=== PATIENT | female | born 1985 | race Caucasian/White ===

== ENCOUNTER 2019-05-26 14:41 | Outpatient (REF) | payer MEDICAID, SELFPAY ==
--- NOTE | 2019-05-26 13:15 | PAPFT_PTH ---
PATIENT: Raven Barahona LOC: NCN #:[id number] AGE/SX: 34/F ROOM: RE05/26/[address]: Chantale Cummings : 1985 BED: DIS: 05/26/2019 SPEC #: [id number] RECD: 05/27/19 12:52 STATUS: GILDA REQ #: [id number] ASHLEY: 05/26/19 13:[address]: Chantale Cummings DEPT: [facility] Cytology RECD BY: Olga Garces Tissues: 1 - CX/ENDOCX FOR PAP SMEARS Procedures: PAP THIN PREP/UVM Screening HPV DNA PROBE Comments: [id number]
[2019-05-28 13:05] LABS: HIV-1/2 Ag & Ab Screen Negative (Negative); Hepatitis C Ab w Rflx HCV PCR Negative (Negative)
[2019-05-28 13:10] LABS: Chlamydia Result Negative (Negative); GC Result Negative (Negative)
== END 2019-05-26 15:01 ==
LOC: NCHCN 14:41
PROVIDERS: PCP Physician Assistant Medical; Visit Provider Physician Assistant Medical
DX: Z11.3 Encounter for screening for infections with a predominantly sexual mode of transmission (principal); Z11.4 Encounter for screening for human immunodeficiency virus [HIV]; Z11.59 Encounter for screening for other viral diseases; Z12.4 Encounter for screening for malignant neoplasm of cervix; Z00.00 Encounter for general adult medical examination without abnormal findings
CPT/HCPCS: 86803; 87389; 87491; 87591; 88142; 87624

== ENCOUNTER 2020-09-08 18:29 | Outpatient (REF) | payer MEDICAID, SELFPAY ==
[2020-09-10 14:39] LABS: Chlamydia Result Negative (Negative); GC Result Negative (Negative)
== END 2020-09-08 18:30 | disposition home or self-care (01) ==
LOC: NCHCN 18:29
PROVIDERS: PCP Physician Assistant Medical; Visit Provider Physician Assistant Medical
DX: R10.9 Unspecified abdominal pain (principal); Z11.3 Encounter for screening for infections with a predominantly sexual mode of transmission; N76.89 Other specified inflammation of vagina and vulva
CPT/HCPCS: 87491; 87591; 87480; 87510; 87660

== ENCOUNTER 2020-11-01 01:02 | Outpatient (CLI) | payer MEDICAID, SELFPAY ==
--- NOTE | 2020-11-01 | DI.US_ITS ---
Exam(s) US PELVIS EXAM: US PELVIS CLINICAL HISTORY: PELVIC PAIN, R10.2. TECHNIQUE: Transabdominal pelvic ultrasound was performed using standard protocol. The patient decl ined the transvaginal portion of the examination. COMPARISON: US RENAL ULTRASOUND(P) from 05/15/2013 FINDINGS: KIDNEYS: Kidneys are symmetric in size. No evidence of renal calculi. No evidence of hydronephrosis. No renal mass or cyst identified. UTERUS: Position: Anteverted. Size: 6.9 long by 4.4 AP by 6.2 transverse cm Endometrium: 0.8 cm. Normal for patient's menstrual status. Myometrium: Unremarkable. Cervix: Unremarkable. OVARIES: Right: 3.5 x 1.6 x 1.1 cm Cyst or mass: None. Left: 2.9 x 2.3 x 2.6 cm Cyst or mass: None. DOPPLER: Color: Symmetric and uniform flow to both ovaries. No hyperemia. Duplex: Normal ovarian arterial waveforms visualized. CUL-DE-SAC: Free fluid: None. Other: None. IMPRESSION: 1. Normal sonographic appearance of the kidneys. 2. Normal-appearing uterus with endometrial stripe within normal limits. 3. Unremarkable bilateral ovaries. DATA REPOSITORY:
== END 2020-11-01 01:22 ==
PROVIDERS: PCP Physician Assistant Medical; Visit Provider Physician Assistant Medical
DX: R10.2 Pelvic and perineal pain (principal)
CPT/HCPCS: 76856

== ENCOUNTER 2022-02-21 07:50 | Emergency (ER) | payer MEDICAID, SELFPAY ==
[2022-02-21 07:54] VITALS: BP 112/47; PULSE 62; RESP 18; TEMP 36.6; O2SAT 99
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
[2022-02-21 08:34] LABS: Bilirubin Negative (Negative); Blood Negative (Negative); Clarity Clear (Clear); Glucose Negative (Negative); Ketones Negative (Negative); Leukocyte Esterase Negative (Negative); Nitrite Negative (Negative); Specific Gravity 1.025 (1.005-1.025); Urobilinogen 0.2 EU/dL (Up TO 0.2)
[2022-02-21 09:08] LABS: Abs Immature Grans 0.02 10^3/uL (0.0-0.06); Absolute Basophil Count 0.05 10^3/uL (0.0-0.2); Absolute Eosinophil Count 0.03 10^3/uL (0.0-0.7); Absolute Lymphocyte Count 1.48 10^3/uL (1.2-3.4); Absolute Monocyte Count 0.41 10^3/uL (0.1-0.8); Basophils % 0.7; Eosinophils % 0.4; HCT 38.5 % (36.0-46.0); HGB 13.1 g/dL (11.2-15.7); Immature Grans % 0.3; Lymphocytes % 22.1; MCH 30.2 pg (27.0-33.0); MCV 89 fL (80-95); MPV 10.1 fL (8.0-11.0); Monocytes % 6.1; Neutrophils % 70.4; Platelet Count 229 10^3/uL (130-400); RBC 4.34 10^6/uL (3.93-5.22); RDW 13.3 % (11.7-14.6); RDW-SD 43.8 fL; WBC 6.69 10^3/uL (4.4-10.8)
[2022-02-21] MEDS: ACETAMINOPHEN 1,000 MG/100 ML BTL 400 MG IVPB (09:13)
[2022-02-21] MEDS: Ondansetron 4 MG/2 ML VIAL IVP (09:14)
[2022-02-21] MEDS: Normal Saline 1,000 ML 1000 ML IV (09:14)
[2022-02-21 09:24] LABS: ALT 18 U/L (14-59); AST 19 U/L (15-37); Albumin 3.9 g/dL (3.4-5.0); Alkaline Phosphatase 57 U/L (46-116); Anion Gap 8.5 mmol/L (3-11); BUN 16 mg/dL (7-18); CO2 25.5 mmol/L (21.0-32.0); Calcium 8.6 mg/dL (8.5-10.1); Chloride 105 mmol/L (98-107); Estimated GFR 74.88 (mL/min/1.73m2); Glucose 96 mg/dL (74-106); Lipase 627 U/L (73-393); Potassium 3.9 mmol/L (3.5-5.1); Sodium 139 mmol/L (136-145); Total Protein 7.1 g/dL (6.4-8.2)
--- NOTE | 2022-02-21 09:30 | DI.CT_ITS ---
Exam(s) CT ABDOMEN PELVIS W EXAM: CT ABDOMEN PELVIS W CLINICAL HISTORY: L flank pain, elevated lipase TECHNIQUE: Imaging Protocol: Axial computed tomography images with coronal and sagittal reformatted images were created and reviewed CONTRAST MATERIAL: Intravenous: Omnipaque 350 Contrast volume:100 mL Oral: No COMPARISON: CT RENAL COLIC WO CONTRAST from 04/06/2013 FINDINGS: ABDOMEN: Lung Bases: Normal where visualized. Liver: Normal density. No measurable mass. Portal, Superior Mesenteric, and Splenic Veins: Unremarkable. Gallbladder and Biliary Tract: No radiodense calculus or dilation. Pancreas: Normal density, no abnormal calcifications or inflammatory process. Spleen: Normal. Adrenals: No masses seen. Kidneys: Normal size, contour and axis. There is a 3 mm nonobstructing stone in the left kidney. The re are bilateral simple renal cysts. No follow-up is recommended. Abdominal Aorta: Abdominal portion non-dilated. Bowel: No obstruction or bowel wall thickening. No evidence of appendicitis. Peritoneal Cavity: There is a trace amount of free fluid in the pelvis which is likely physiologic. No free air. Lymph Nodes: Within normal limits. Bones: Within normal limits for the patient's age. Soft Tissues: Unremarkable. PELVIS: Bladder: Symmetric distention, no gross wall thickening. Reproductive Organs: Unremarkable as visualized. Lymph Nodes: Within normal limits. Bones: Within normal limits for the patient's age. IMPRESSION: 1. No acute abdominal or pelvic process. 2. Left nephrolithiasis. No hydronephrosis. 3. Results of this exam have been verbally communicated with provider. RADIATION DOSE DELIVERED: 775.78mGy.cm Total DLP DATA REPOSITORY: All CT scans at this facility are submitted to the National Radiology Data Registry (NRDR) Dose Index Registry (DIR) with the [employer] (ACR). RADIATION OPTIMIZATION: All CT scans at this facility use at least one of these dose optimization te chniques: automated exposure control; mA and/or kV adjustment per patient size (includes targeted exa ms where dose is matched to clinical indication); or iterative reconstruction.
[2022-02-21] MEDS: Omnipaque 350 MG/ML 500 ML BTL-Imaging package IJ (09:39)
[2022-02-21 10:33] VITALS: BP 111/57; PULSE 52; RESP 18; O2SAT 100
--- NOTE | 2022-02-21 12:07 | NUR.NOTE ---
Nursing Note: Referral given to Care Management for needs PCP (just moved back to area), to establish care with routine follow up.
--- NOTE | 2022-02-23 14:05 | CMACTNOTE_ITS ---
- If Service Date Differs Date of service: 02/23/22 Time of Service: 14:05 Care Management Activity Note Raven is seen in the ED for pancreatitis. CM receives a request from ED provider to assist patient in establishing care with a local PCP as she recently moved back to the area. A review of her file reveals that Jacquelyn Cummings PA-C, of the [facility] is her former PCP. CM contacts the [facility] and is advised that Raven is still considered an active pat ient. 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
== END 2022-02-21 11:10 | disposition home or self-care (01) ==
PROVIDERS: Emergency Provider Physician Assistant; PCP Physician Assistant Medical
DX: K85.90 Acute pancreatitis without necrosis or infection, unspecified (principal); F17.200 Nicotine dependence, unspecified, uncomplicated
CPT/HCPCS: 36415; 80053; 81025; 83690; 96361; 96374; 96375; 99284; 74177; 81003; 85025; J0131; J2405

== ENCOUNTER 2022-03-03 16:44 | Outpatient (REF) | payer MEDICAID, SELFPAY ==
[2022-03-03 16:54] LABS: Lipase 227 U/L (73-393)
== END 2022-03-03 16:45 | disposition home or self-care (01) ==
LOC: NCHCN 16:44
PROVIDERS: PCP Physician Assistant Medical; Visit Provider Nurse Practitioner Family
DX: R74.8 Abnormal levels of other serum enzymes (principal)
CPT/HCPCS: 83690

== ENCOUNTER 2025-02-10 11:15 | Emergency (ER) | payer MEDICAID, SELFPAY ==
[2025-02-10 11:23] VITALS: BP 129/81; PULSE 69; RESP 18; TEMP 36.8; O2SAT 99
[2025-02-10 11:25] VITALS: BP 129/81; PULSE 69; RESP 18; TEMP 36.8; O2SAT 99
--- NOTE | 2025-02-10 11:45 | DI.CT_ITS ---
Exam(s) CT RENAL COLIC WO EXAM: CT RENAL COLIC WO CLINICAL HISTORY: hx kidney stones, flank pain. TECHNIQUE: Imaging Protocol: Axial computed tomography images with coronal and sagittal reformatted images were created and reviewed. COMPARISON: CT RENAL COLIC WO CONTRAST from 04/06/[address] ABDOMEN PELVIS W from 02/21/2022 FINDINGS: ABDOMEN: Lung Bases: Normal where visualized. Liver: Normal density. There are no suspicious hepatic masses. Gallbladder and biliary tract: No radiodense calculus or biliary ductal dilation. Pancreas: Normal density, no abnormal calcifications or inflammatory process. Spleen: Normal. Kidneys: Normal size, contour and axis.There is a single 3 mm stone in the lower pole of the left kidney. There is a 4 mm calcification at the left UVJ. This was not present on the prior examination. Previously there are 2 left renal stones. The more superior stone is not visualized at this time and likely reflects the calcification at the left UVJ. No significant hydronephrosis is seen. Hypodensities are again seen in the left kidney consistent with cysts. No follow-up is recommended. Adrenal glands: No mass is seen. Lymph nodes: Within normal limits. Abdominal Aorta: Abdominal portion non-dilated. PELVIS: Bladder:The urinary bladder is incompletely distended but grossly unremarkable. Bowel: No obstruction or bowel wall thickening. There is no evidence of appendicitis. Peritoneal cavity: No ascites, collection or mesenteric inflammatory response. No free air. Reproductive organs: Unremarkable as visualized. Bones: Within normal limits. Soft Tissues: Within normal limits. IMPRESSION: 1. 4 mm left UVJ calculus without significant hydronephrosis. 2. Left nephrolithiasis. RADIATION DOSE DELIVERED: 567.47mGy.cm Total DLP DATA REPOSITORY: All CT scans at this facility are submitted to the National Radiology Data Registry (NRDR) Dose Index Registry (DIR) with the [employer] (ACR). RADIATION OPTIMIZATION: All CT scans at this facility use at least one of these dose optimization techniques: automated exposure control; mA and/or kV adjustment per patient size (includes targeted exams where dose is matched to clinical indication); or iterative reconstruction.
[2025-02-10 12:06] LABS: Abs Immature Grans 0.03 10^3/uL (0.0-0.06); HCT 40.4 % (36.0-46.0); HGB 13.4 g/dL (11.2-15.7); Immature Grans % 0.5 %; MCH 29.5 pg (27.0-33.0); MCHC 33.2 % (32.0-36.0); MCV 89 fL (80-95); MPV 10.2 fL (8.0-11.0); Platelet Count 240 10^3/uL (130-400); RBC 4.54 10^6/uL (3.93-5.22); RDW 12.9 % (11.7-14.6); RDW-SD 42.0 fL; WBC 6.03 10^3/uL (4.4-10.8)
[2025-02-10] MEDS: Normal Saline 1,000 ML 1000 ML IV (12:18)
[2025-02-10] MEDS: Acetaminophen 500 MG TAB 1000 MG PO (12:18)
[2025-02-10 12:20] LABS: Glucose Negative (Negative)
[2025-02-10 12:34] LABS: C & S Indicated? No; WBC 0-2 HPF (0-5)
[2025-02-10 12:36] LABS: ALT 16 U/L (14-59); AST 15 U/L (15-37); Albumin 3.7 g/dL (3.4-5.0); Alkaline Phosphatase 54 U/L (46-116); Anion Gap 10.5 mmol/L (3-11); BUN 13 mg/dL (7-18); Bilirubin, Total 1.2 mg/dL (0.2-1.0); CO2 24.5 mmol/L (21.0-32.0); Calcium 9.0 mg/dL (8.5-10.1); Chloride 106 mmol/L (98-107); Estimated GFR 83.40 (mL/min/1.73m2); Glucose 90 mg/dL (74-106); Lipase 64 U/L (<78); Potassium 3.7 mmol/L (3.5-5.1); Sodium 141 mmol/L (136-145); Total Protein 7.3 g/dL (6.4-8.2)
--- NOTE | 2025-02-10 12:57 | W.ED.GENAD ---
Discharge Plan Disposition Patient Disposition: Home Condition: Stable Discharge Details Clinical Impression: Calculus of left ureter Primary Care Provider: Chantale Cummings ED Provider: Rudolph Orozco Home Meds and New Rx's Prescriptions: New tamsulosin 0.4 mg capsule 0.4 mg PO DAILY Qty: 30 0RF Continued ibuprofen 200 MG tablet 1 tab PO PRN PRN levalbuterol tartrate [Xopenex HFA] 200 PUFF HFA aerosol inhaler 2 puff Inhalation PRN PRN Discharge Instructions Instructions: Tamsulosin, Kidney Stone, Adult ED Additional Instructions: You were seen in the emergency department for your left ureteral stone, please take the prescribed Flomax which will help dilate your urinary system, aggressively hydrate yourself, take 1000 mg of Tylenol 4 times per day, take ibuprofen in between, we sent home with 3 tablets of oxycodone for any breakthrough pain, follow-up with urology for any complications that your stone is 4 mm and is likely to pass, please return for any complete urinary obstruction, severe increase in pain with fever or any other emergent concern. Referrals: Chris Cagle MD [ [facility] STAFF PHYSICIAN, Urology] Chantale Cummings PA [Primary Care Provider, Medicine] Discharge Data Discharge Date/Time-TO BE ENTERED AT DEPARTURE: 02/10/25 14:23 HPI General Date/Time Provider Initiated Documentation: 02/10/25 11:32. HPI Narrative: 39 year-old female presents to ED today by POV/ambulating with a chief complaint of bilateral flank pain with onset 3-4 days ago, with history of kidney stones. Quality described as deep aching flank pain, both sides, with radiation to groin pain, straining to urinate, denies radiation to fever, discharge, foul smelling urine, shortness of breath, endorses nausea without vomiting. Severity is described as severe. Palliating factors include OTC analgesics without relief. Provoking factors include nothing specific. Events leading up to the incident/Associated Symptoms: Patient denies history of need for renal stents. Patient not anticoagulated. Related Data Home Medications ?Medication ?Instructions ?Recorded ?Confirmed ibuprofen 200 mg tablet 1 tab PO PRN PRN 09/09/14 02/10/25 levalbuterol tartrate 45 2 puff inhalation PRN PRN 06/22/17 02/10/25 mcg/actuation aerosol inhaler (Xopenex HFA) tamsulosin 0.4 mg capsule 0.4 mg PO DAILY #30 caps 02/10/25 Previous Rx's ?Medication ?Instructions ?Recorded tamsulosin 0.4 mg capsule 0.4 mg PO DAILY #30 caps 02/10/25 Allergies Allergy/AdvReac Type Severity Reaction Status Date / Time ketorolac tromethamine (From Allergy Intermediate THROAT AND Unverified 02/21/22 07:58 Toradol) TONGUE SWELLING poison kristina extract (Poison Allergy Intermediate BODY RASH Unverified 02/21/22 07:58 Kristina Extract) poison oak extract (Poison Allergy Intermediate RASH Unverified 02/21/22 07:58 [place] Extract) poison sumac extract (Poison Allergy Intermediate RASH Unverified 02/21/22 07:58 Sumac Extract) venom-honey bee (bee venom Allergy Intermediate Swelling/Ed Unverified 02/21/22 07:58 (honey bee)) migue shellfish derived AdvReac Intermediate NAUSEA Unverified 02/21/22 07:58 General Stated Complaint: FlankPain VANDANA: 3 Review of Systems All systems reviewed & are unremarkable except as noted in HPI and below Exam Narrative Exam Narrative: GENERAL APPEARANCE: Well-nourished, non-toxic, awake and alert, atraumatic, mild acute distress. SKIN: Warm, pink, dry, intact, without rashes/lesions/ulcerations. HEAD: Normocephalic, atraumatic, normal hair distribution for gender/age. EYES: Normal conjunctiva, no exudates on lids/lashes. ENT: Nares patent, no circumoral cyanosis, no facial swelling NECK: Supple, trachea midline, painless cervical ROM. LUNGS/CHEST: Lungs CTA bilaterally- no rhonchi/rales/wheezes diffusely, non-labored respirations, normal A/P diameter, symmetrical expansion, no chest wall deformity HEART (CV/PV): Regular rate and rhythm without murmur, no peripheral edema, no JVD. ABDOMEN: Soft, non-distended, no guarding, CVA tenderness to percussion bilaterally, mild diffuse lower abdominal tenderness without peritoneal signs. MSK: Normal ROM, no swelling/deformity to bilateral UEs or LEs, moving all extremities without weakness, no cyanosis, spine midline without tenderness, normal curvature. NEURO: Mental Status AAOx4 - alert to person, place, time, events No facial droop, no forehead involvement. Motor: No focal weakness - strength 5/5 in bilateral UEs and LEs, proximal and distal, symmetric. Sensory: sensation intact to light touch globally. Gait normal: patient ambulated without ataxia into ED room. PSYCH: euthymic, cooperative, pleasant, appropriate speech Course Vital Signs Vital signs: Vital Signs Temperature 36.8 C 02/10/25 11:23 Pulse 69 02/10/25 11:23 Respiratory Rate 18 02/10/25 11:23 Blood Pressure 129/81 02/10/25 11:23 Pulse Oximetry 99 02/10/25 11:23 Temperature 36.8 C 02/10/25 11:25 Pulse 69 02/10/25 11:25 Respiratory Rate 18 02/10/25 11:25 Blood Pressure 129/81 02/10/25 11:25 Pulse Oximetry 99 02/10/25 11:25 Pain Level 5 02/10/25 11:25 Lab/Test Results Lab/Test Results: Laboratory Tests Range/Units 02/10/25 02/10/25 11:44 11:53 WBC (4.4-10.8) 10^3/uL 6.03 RBC (3.93-5.22) 10^6/uL 4.54 Hgb (11.2-15.7) g/dL 13.4 Hct (36.0-46.0) % 40.4 MCV (80-95) fL 89 MCH (27.0-33.0) pg 29.5 MCHC (32.0-36.0) % 33.2 RDW (11.7-14.6) % 12.9 Plt Count (130-400) 10^3/uL 240 MPV (8.0-11.0) fL 10.2 Immature Gran % % 0.5 Neutrophils % % 61.0 Lymphocytes % % 29.4 Monocytes % % 7.6 Eosinophils % % 0.7 Basophils % % 0.8 Nucleated RBC % (0.0-0.3) % 0.0 Absolute Neutrophils (1.2-6.7) 10^3/uL 3.68 Absolute Lymphocytes (1.2-3.4) 10^3/uL 1.77 Absolute Monocytes (0.1-0.8) 10^3/uL 0.46 Absolute Eosinophils (0.0-0.7) 10^3/uL 0.04 Absolute Basophils (0.0-0.2) 10^3/uL 0.05 Sodium (136-145) mmol/L 141 Potassium (3.5-5.1) mmol/L 3.7 Chloride (98-107) mmol/L 106 Carbon Dioxide (21.0-32.0) mmol/L 24.5 Anion Gap (3-11) mmol/L 10.5 BUN (7-18) mg/dL 13 Creatinine (0.55-1.02) mg/dL 0.9 Est GFR (CKD-EPI 2020) (mL/min/1.73m2) 83.40 Glucose (74-106) mg/dL 90 Calcium (8.5-10.1) mg/dL 9.0 Total Bilirubin (0.2-1.0) mg/dL 1.2 H AST (15-37) U/L 15 ALT (14-59) U/L 16 Alkaline Phosphatase (46-116) U/L 54 Total Protein (6.4-8.2) g/dL 7.3 Albumin (3.4-5.0) g/dL 3.7 Lipase (<78) U/L 64 Urine Color (Yellow) Yellow Urine Clarity (Clear) Sl Cloudy Urine pH (5-8) 7.5 Ur Specific [place] (1.005-1.025) 1.015 Urine Protein (Neg-Trace) mg/dL Negative Urine Ketones (Negative) mg/dL Negative Urine Blood (Negative) Trace-intact H Urine Nitrite (Negative) Negative Urine Bilirubin (Negative) Negative Urine Urobilinogen (Up to 0.2) mg/dL 0.2 Ur Leukocyte Esterase (Negative) Negative Urine RBC (0-2) HPF 3-5 H Urine WBC (0-5) HPF 0-2 Ur Epithelial Cells (Negative) HPF Rare Urine Crystals (Negative) HPF Negative Urine Bacteria (Negative) HPF Rare Urine Casts (Negative) LPF Negative Urine Mucus (Negative) Trace Ur Culture Indicated? No Urine Glucose (Negative) mg/dL Negative Medical Decision Making This dictation utilizes [id number] dictation software and may contain unedited grammatical errors. 39 year-old female presents to ED today by POV/ambulating with a chief complaint of bilateral flank pain with onset 3-4 days ago, with history of kidney stones. Quality described as deep aching flank pain, both sides, with radiation to groin pain, straining to urinate, denies radiation to fever, discharge, foul smelling urine, shortness of breath, endorses nausea without vomiting. Severity is described as severe. Palliating factors include OTC analgesics without relief. Provoking factors include nothing specific. Events leading up to the incident/Associated Symptoms: Patient denies history of need for renal stents. Patients' medical history: kidney stones. Family and social history: noncontributory. Pertinent exam findings / vital signs include bilateral CVA tenderness to percussion, stable vitals, benign cardiopulmonary exam. Differential / pathologies of concern include renal colic, UTI, pyelonephritis, obstructive uropathy. Diagnostic studies of: -CBC, CMP, lipase, UA, CT renal colic without. - CBC shows no leukocytosis - CMP is unremarkable - Lipase negative - UA shows no signs of urinary tract infection - CT shows a 4 mm calculus at the UVJ Interventions of: -1g PO APAP, 1l IVF NS, 0.4mg tamsulosin PO > Rx for tamsulosin, 3 doses oxycodone to aid in sleep while attempting stone passage. ED Course/Assessment/Plan: 39-year-old female presents with bilateral flank pain history of kidney stones, CT shows a 4 mm stone that will likely pass, no evidence of severe hydronephrosis or UTI, counseled on conservative management at home with Flomax and pushing fluids as well as pain control. Recommend follow-up with urology, strict return criteria for any sudden cessation of ability to urinate or developing fever or severe nausea and weakness Findings not consistent with urinary obstruction, infected kidney stone, sepsis. Disposition of Calculus of Left Ureter. Patient verbalized understanding of the plan and return to ED criteria and engaged in shared decision making. Medical Records Medical records reviewed: Yes I reviewed the patient's medical records. Imaging Data Radiologic Study: Attestation: I personally reviewed and interpreted this imaging study as follows: Imaging: CT Scan Radiologist's impression: EXAM: CT RENAL COLIC WO CLINICAL HISTORY: hx kidney stones, flank pain. TECHNIQUE: Imaging Protocol: Axial computed tomography images with coronal and sagittal reformatted images were created and reviewed. COMPARISON: CT RENAL COLIC WO CONTRAST from 04/06/[address] ABDOMEN PELVIS W from 02/21/2022 FINDINGS: ABDOMEN: Lung Bases: Normal where visualized. Liver: Normal density. There are no suspicious hepatic masses. Gallbladder and biliary tract: No radiodense calculus or biliary ductal dilation. Pancreas: Normal density, no abnormal calcifications or inflammatory process. Spleen: Normal. Kidneys: Normal size, contour and axis.There is a single 3 mm stone in the lower pole of the left kidney. There is a 4 mm calcification at the left UVJ. This was not present on the prior examination. Previously there are 2 left renal stones. The more superior stone is not visualized at this time and likely reflects the calcification at the left UVJ. No significant hydronephrosis is seen. Hypodensities are again seen in the left kidney consistent with cysts. No follow-up is recommended. Adrenal glands: No mass is seen. Lymph nodes: Within normal limits. Abdominal Aorta: Abdominal portion non-dilated. PELVIS: Bladder:The urinary bladder is incompletely distended but grossly unremarkable. Bowel: No obstruction or bowel wall thickening. There is no evidence of appendicitis. Peritoneal cavity: No ascites, collection or mesenteric inflammatory response. No free air. Reproductive organs: Unremarkable as visualized. Bones: Within normal limits. Soft Tissues: Within normal limits. IMPRESSION: 1. 4 mm left UVJ calculus without significant hydronephrosis. 2. Left nephrolithiasis. Lab Data Lab results reviewed: Yes I reviewed the patient's lab results. Labs: Laboratory Tests Range/Units 02/10/25 02/10/25 11:44 11:53 WBC (4.4-10.8) 10^3/uL 6.03 RBC (3.93-5.22) 10^6/uL 4.54 Hgb (11.2-15.7) g/dL 13.4 Hct (36.0-46.0) % 40.4 MCV (80-95) fL 89 MCH (27.0-33.0) pg 29.5 MCHC (32.0-36.0) % 33.2 RDW (11.7-14.6) % 12.9 Plt Count (130-400) 10^3/uL 240 MPV (8.0-11.0) fL 10.2 Immature Gran % % 0.5 Neutrophils % % 61.0 Lymphocytes % % 29.4 Monocytes % % 7.6 Eosinophils % % 0.7 Basophils % % 0.8 Nucleated RBC % (0.0-0.3) % 0.0 Absolute Neutrophils (1.2-6.7) 10^3/uL 3.68 Absolute Lymphocytes (1.2-3.4) 10^3/uL 1.77 Absolute Monocytes (0.1-0.8) 10^3/uL 0.46 Absolute Eosinophils (0.0-0.7) 10^3/uL 0.04 Absolute Basophils (0.0-0.2) 10^3/uL 0.05 Sodium (136-145) mmol/L 141 Potassium (3.5-5.1) mmol/L 3.7 Chloride (98-107) mmol/L 106 Carbon Dioxide (21.0-32.0) mmol/L 24.5 Anion Gap (3-11) mmol/L 10.5 BUN (7-18) mg/dL 13 Creatinine (0.55-1.02) mg/dL 0.9 Est GFR (CKD-EPI 2020) (mL/min/1.73m2) 83.40 Glucose (74-106) mg/dL 90 Calcium (8.5-10.1) mg/dL 9.0 Total Bilirubin (0.2-1.0) mg/dL 1.2 H AST (15-37) U/L 15 ALT (14-59) U/L 16 Alkaline Phosphatase (46-116) U/L 54 Total Protein (6.4-8.2) g/dL 7.3 Albumin (3.4-5.0) g/dL 3.7 Lipase (<78) U/L 64 Urine Color (Yellow) Yellow Urine Clarity (Clear) Sl Cloudy Urine pH (5-8) 7.5 Ur Specific [place] (1.005-1.025) 1.015 Urine Protein (Neg-Trace) mg/dL Negative Urine Ketones (Negative) mg/dL Negative Urine Blood (Negative) Trace-intact H Urine Nitrite (Negative) Negative Urine Bilirubin (Negative) Negative Urine Urobilinogen (Up to 0.2) mg/dL 0.2 Ur Leukocyte Esterase (Negative) Negative Urine RBC (0-2) HPF 3-5 H Urine WBC (0-5) HPF 0-2 Ur Epithelial Cells (Negative) HPF Rare Urine Crystals (Negative) HPF Negative Urine Bacteria (Negative) HPF Rare Urine Casts (Negative) LPF Negative Urine Mucus (Negative) Trace Ur Culture Indicated? No Urine Glucose (Negative) mg/dL Negative PFSH All Active Problems (Updated 02/10/25 @ 13:44 by VIJI [place]) Calculus of left ureter (Acute) Medical History Bilateral headaches Chronic nausea Heart burn UTI (urinary tract infection) Surgical History Dilation and curettage EGD - IV Sedation (07/03/16) Family History Other Diabetes GERD (gastroesophageal reflux disease) Vertigo Social History Smoking/Tobacco Use Status: Current every day Smoking risk assessment performed?: Yes Alcohol Intake: current Alcohol Intake frequency: holidays/special occasions only Drug use: Daily Substance use type: marijuana Do you feel safe at home: Yes Do you feel safe in your relationship?: Yes
[2025-02-10] MEDS: Tamsulosin 0.4 MG CAPCR PO (13:23)
[2025-02-10 14:06] VITALS: BP 130/62; PULSE 55; O2SAT 100
[2025-02-10] MEDS: oxyCODONE 5 MG TAB 15 MG PO (14:15)
== END 2025-02-10 14:23 | disposition home or self-care (01) ==
PROVIDERS: Emergency Provider Physician Assistant; PCP Physician Assistant Medical
DX: N20.1 Calculus of ureter (principal); R11.0 Nausea
CPT/HCPCS: 36415; 80053; 83690; 96360; 96361; 99284; 74176; 81003; 81015; 85025